=== PATIENT | male | born 1990 | race Caucasian/White ===

== ENCOUNTER 2020-06-07 09:34 | Emergency (ER) | payer OTHER ==
[~2020-06-07] VITALS: Ht 170.2 cm; Wt 70.0 kg
[2020-06-07 09:39] VITALS: BP 105/72
== END 2020-06-07 10:09 | disposition home or self-care (01) ==
LOC: ER 09:35
DX: S40.811A Abrasion of right upper arm, initial encounter (principal); F31.9 Bipolar disorder, unspecified; F32.9 Major depressive disorder, single episode, unspecified; W25.XXXA Contact with sharp glass, initial encounter; Y93.89 Activity, other specified; Y92.89 Other specified places as the place of occurrence of the external cause; Y99.8 Other external cause status
CPT/HCPCS: 99284

== ENCOUNTER 2020-06-07 21:59 | Emergency (ER) | payer OTHER ==
[~2020-06-07] VITALS: Ht 170.2 cm; Wt 46.0 kg
[2020-06-07 22:08] VITALS: BP 112/72
[2020-06-07] MEDS ORDERED: emollient combination-Eucerin 250 ML LOTION TP STA (23:17)
[2020-06-07] MEDS ORDERED: mineral oil/petrolatum, white cream 113gm jar TP ONE (23:25)
== END 2020-06-08 00:01 | disposition home or self-care (01) ==
LOC: ER 22:00
DX: M25.571 Pain in right ankle and joints of right foot (principal); F31.9 Bipolar disorder, unspecified
CPT/HCPCS: 99282

== ENCOUNTER 2020-06-10 13:17 | Emergency (ER) | payer OTHER ==
--- NOTE | 2020-06-10 14:43 | NUR ---
Attempted to call patient x3 and patient was not in lobby for the third time. Patient called via cell phone and left a voice mail message. Dr. Summers notified regarding LBT and call back.
== END 2020-06-10 14:46 | disposition left against medical advice (07) ==
LOC: ER 13:19
DX: Z53.21 Procedure and treatment not carried out due to patient leaving prior to being seen by health care provider (principal)

== ENCOUNTER 2020-06-13 22:43 | Emergency (ER) | payer OTHER ==
[~2020-06-13] VITALS: Ht 170.2 cm; Wt 75.0 kg
[2020-06-13 23:00] VITALS: BP 115/67
--- NOTE | 2020-06-13 23:09 | NUR ---
PATIENT MORE CONCERNED WITH NEED TO CHARGE CELL PHONE THAT RECEIVING MEDICAL CARE
== END 2020-06-13 23:18 | disposition home or self-care (01) ==
LOC: ER 22:43
DX: F31.9 Bipolar disorder, unspecified (principal); Z00.00 Encounter for general adult medical examination without abnormal findings; Z59.0 Homelessness
CPT/HCPCS: 99283

== ENCOUNTER 2020-07-04 15:24 | Emergency (ER) | payer OTHER ==
[~2020-07-04] VITALS: Ht 170.2 cm; Wt 72.7 kg
[2020-07-04 15:31] VITALS: BP 110/72
--- NOTE | 2020-07-04 17:49 | NUR ---
UPON ENTERING THE ROOM AND ASKING THE PT TO LEAVE HE HAD BEEN DISCHARGED, PT BECAME AGGITAED AND STARTED YELLING AT ME. PT REFUSED TO STOP WASHING HIS FEET IN THE SINK, I OFFERED TO GET A TOWEL FOR HIM AND HE TOLD ME TO LEAVE THE ROOM. MY CHARGE NURSE, CHRISTOS ASKED ME TO LEAVE THE ROOM.
--- NOTE | 2020-07-04 17:58 | NUR ---
PT WAS REFUSING TO LEAVE UPON DISCHARGE PTS RN ASKED FOR ASSISTANCE TO HELP PT OUT OF DEPARTMENT PT CONTINUED TO REFUSED SO I CALLED SECURITY FOR ASSISTANCE. SECURITY THEN ARRIVED AND THE PT CONTINUED TO SWING AT MYSELF AND SECURITY. MORE OFFICERS ARRIVED AND SECURITY HANDLED THE SITUATION.
== END 2020-07-04 18:05 | disposition home or self-care (01) ==
LOC: ER 15:24
DX: S90.812A Abrasion, left foot, initial encounter (principal); Z59.0 Homelessness; X58.XXXA Exposure to other specified factors, initial encounter; Y93.89 Activity, other specified; Y92.89 Other specified places as the place of occurrence of the external cause; Y99.8 Other external cause status
CPT/HCPCS: 99281; 99283